=== PATIENT | female | born 1990 | race American Indian/Alaskan Native ===

== ENCOUNTER 2017-07-12 12:36 | Day surgery (SDC) | payer BC ==
[2017-07-12] MEDS ORDERED: Midazolam 2 MG/2 ML VIAL ONE (13:37)
[2017-07-12] MEDS ORDERED: Propofol 10 mg/ml Inj (20 ML) ONE (14:03)
[2017-07-12] MEDS ORDERED: Lactated Ringer's 1,000 ML IV ONE (14:34)
[2017-07-12] MEDS ORDERED: Morphine 4 MG/ML VIAL IVP PRN (14:36)
--- NOTE | 2017-07-12 14:39 | PCM.SURG1 ---
Surgeon's Initial Post Op Note - Surgeon's Notes Surgeon: Dr. Olivarez Curbing Stonecutter: None Type of Anesthesia: General LMA Anesthesia Administered By: Dr Crandall Pre-Operative Diagnosis: 27 yo that came with menorrhagia, Irregular mentrual cycle, endometrial polyp Operative Findings: av uterus 8 wks Post-Operative Diagnosis: Same as above Operation Performed: Hysteroscopy D and C , attempted myosure Specimen/Specimens Removed: emc, ecc, POLYP Estimated Blood Loss: EBL {In ML}: 10 Blood Products Given: N/A Drains Used: No Drains Post-Op Condition: Good Date of Surgery/Procedure: 07/12/17 Time of Surgery/Procedure: 14:39
[2017-07-12 16:37] VITALS: RESP 16
[2017-07-12 16:49] VITALS: BP 116/52; PULSE 86; TEMP 97.5; O2SAT 98
--- NOTE | 2017-07-13 04:05 | OP ---
PROCEDURE DATE: 07/12/2017 PREOPERATIVE DIAGNOSES: A 27-year-old female with history of menorrhagia, irregular menstrual period, and endometrial polyp. POSTOPERATIVE DIAGNOSES: A 27-year-old female with history of menorrhagia, irregular menstrual period, and endometrial polyp. PROCEDURE: Hysteroscopy, dilatation and curettage, attempted MyoSure. SURGEON: Ankita Olivarez MD TYPE OF ANESTHESIA: General LMA. FINDINGS: Anteverted uterus approximately 8-weeks gestation. COMPLICATIONS: None. ESTIMATED BLOOD LOSS: Approximately 10 mL. IV FLUIDS: 500 mL. URINE OUTPUT: Zero. SPECIMEN: EMC and ECC. DESCRIPTION OF PROCEDURE: The patient was informed of the risk factors, benefits, and alternatives of the procedure. Risk factors included infection, bleeding, damage to the surrounding organs and tissues, complication from anesthesia and possible . After informed consent was obtained, she was then taken to the operating room, prepped and draped in a normal sterile fashion, placed in a dorsal lithotomy position. A weighted speculum was placed into the vagina. The anterior lip of the cervix was grasped with a single-toothed tenaculum. The uterus was gently sounded to approximately 8 cm. Uterine dilation was then performed. Hysteroscopy was then performed. Attempted MyoSure, but unsuccessful. In that particular instance, a fractional D and C was performed. EMC and ECC were obtained and submitted to Pathology. Excellent hemostasis. Upon completion, all instruments were removed from the vagina. Instrument and lap counts were correct x2. The patient was then taken to recovery room in stable condition, and instructed to follow up in the office in approximately two weeks. Ankita Olivarez MD
== END 2017-07-12 16:49 | disposition home or self-care (01) ==
LOC: C.SDS 12:36
PROVIDERS: ATTEND Obstetrics & Gynecology
DX: N84.0 Polyp of corpus uteri (principal); N92.0 Excessive and frequent menstruation with regular cycle
CPT/HCPCS: 58558; 88305; J2250; J2704; J3010; J7120